=== PATIENT | female | born 1980 | race African-American/Black ===

== ENCOUNTER 2016-06-24 18:13 | Emergency (ER) | payer OTHER, MEDICAID ==
[2016-06-24 18:35] VITALS: BP 144/93; BMI 26.4
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
[2016-06-24] MEDS ORDERED: TYLENOL #3 TAB (W/CODEINE) PO ONE ×2 (20:51→21:03)
--- NOTE | 2016-06-24 23:29 | RAD ---
HISTORY: Right hand 5th digit pain after fall Study: Three views right hand Comparison: None Findings: There is an oblique fracture through the head of the middle phalanx of the 5th digit with minimal de pression of the fracture fragment. The fracture line extends into the middle of the DIP joint. IMPRESSION: 1. Fractured head of the middle phalanx of the 5th digit Reported By:
== END 2016-06-24 21:14 | disposition home or self-care (01) ==
LOC: ER 18:52
DX: S62.602A Fracture of unspecified phalanx of right middle finger, initial encounter for closed fracture (principal); W19.XXXA Unspecified fall, initial encounter
CPT/HCPCS: 29130; 73130; 99282; 99283

== ENCOUNTER → 2016-07-05 | Outpatient (CLI) | payer OTHER, MEDICAID ==
[2016-06-24 18:35] VITALS: BP 144/93
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
--- NOTE | 2016-07-05 14:33 | RAD ---
HISTORY: Preop hand surgery Study: Chest two views Comparison: None Findings: The trachea is midline. The cardiac silhouette is unremarkable. The lungs are clear without focal infiltrate or effusion. The bony thorax is unremarkable. There is a port present on the left. IMPRESSION: 1. No acute cardiopulmonary disease. Reported By:
== END ==
LOC: RAD 09:46
PROVIDERS: ATTEND Specialist
DX: Z01.810 Encounter for preprocedural cardiovascular examination (principal); Z01.811 Encounter for preprocedural respiratory examination; S62.626 Displaced fracture of middle phalanx of right little finger; X58.XXXS Exposure to other specified factors, sequela
CPT/HCPCS: 71020; 73130; 93005; 93010

== ENCOUNTER 2016-07-08 07:22 | Day surgery (SDC) | payer OTHER, MEDICAID ==
[2016-07-05 14:13] LABS: BASOPHILS # (AUTO) 0.1 X10^3/uL (0.0-0.1); BASOPHILS % (AUTO) 0.8 % (0.2-1.0); EOSINOPHILS # (AUTO) 0.2 x10^3/uL (0.0-0.2); EOSINOPHILS % (AUTO) 2.6 % (0.9-2.9); HEMATOCRIT 40.4 % (36.0-47.0); LYMPHOCYTES # (AUTO) 2.1 X10^3/uL (1.3-2.9); LYMPHOCYTES % (AUTO) 27.6 % (21.0-51.0); MEAN CORPUSCULAR HGB CONC 32.2 g/dL (33.0-35.0); MEAN CORPUSCULAR VOLUME 77.5 fL (80.0-100.0); MEAN PLATELET VOLUME 7.8 fL (7.4-11.0); MONOCYTES # (AUTO) 0.4 x10^3/uL (0.3-0.8); MONOCYTES % (AUTO) 5.2 % (0.0-13.0); NEUTROPHILS # (AUTO) 4.8 x10^3/uL (2.2-4.8); NEUTROPHILS % (AUTO) 63.8 % (42.0-75.0); PLATELET COUNT 193 X10^3/uL (150.0-450.0); RED BLOOD COUNT 5.21 X10^6/uL (3.5-5.4); RED CELL DISTRIBUTION WIDTH 15.4 % (11.6-16.5); WHITE BLOOD COUNT 7.5 X10^3/uL (3.6-10.0)
[2016-07-05 14:23] LABS: HYPOCHROMASIA SLIGHT; PLATELET MORPHOLOGY COMMENT NORMAL (NORMAL)
[2016-07-05 14:25] LABS: ALANINE AMINOTRANSFERASE 21 Units/L (12-78); ALBUMIN 3.6 g/dL (3.4-5.0); ALKALINE PHOSPHATASE 91 Units/L (46-116); ASPARTATE AMINO TRANSFERASE 7 Units/L (15-37); BLOOD UREA NITROGEN 15 mg/dL (7-18); CALCIUM 8.6 mg/dL (8.5-10.1); CARBON DIOXIDE 25.6 mmol/L (21-32); CHLORIDE 107 mmol/L (98-107); GLUCOSE 97 mg/dL (65-99); SODIUM 142 mmol/L (136-145); TOTAL PROTEIN 7.2 g/dL (6.4-8.2); eGFR BLACK RACES > 60 (>60); eGFR NON BLACK RACES 59 (>60)
[2016-07-05 14:26] LABS: BILIRUBIN,URINE NEGATIVE (NEGATIVE); BLOOD/HEMOGLOBIN,URINE 2+ (NEGATIVE); GLUCOSE, URINE NEGATIVE (NEGATIVE); KETONES,URINE NEGATIVE (NEGATIVE); LEUKOCYTE ESTERASE ,URINE 1+ (NEGATIVE); NITRITES,URINE NEGATIVE (NEGATIVE); PROTEIN,URINE NEGATIVE (NEGATIVE); UROBILINOGEN,URINE NORMAL (NORMAL)
[2016-07-05 14:34] LABS: APPEARANCE,URINE CLEAR (CLEAR); BACTERIA,URINE TRACE /HPF (NEGATIVE); COLOR,URINE YELLOW (YELLOW); SQUAMOUS EPITHELIAL CELL,UR RARE /HPF (NEGATIVE)
[2016-07-08] MEDS ORDERED: NS 50 ML IV + SPIKE MINIBAG* 50 ML IV ONE (07:36)
[2016-07-08] MEDS ORDERED: ANCEF VIAL 1 GM ONE (07:36)
[2016-07-08] MEDS ORDERED: D5 LR 1000 ML 1,000 ML IV ONE (07:36)
[2016-07-08] MEDS ORDERED: NAROPIN 0.75% ONE (07:58)
[2016-07-08] MEDS ORDERED: FENTANYL INJ 100 mcg ONE (07:58)
[2016-07-08] MEDS ORDERED: NS IRRIGATION 1000 ML 1,000 ML IR ONE (08:41)
[2016-07-08] MEDS ORDERED: PHENERGAN INJ 25 MG IVP PRN (09:24)
[2016-07-08] MEDS ORDERED: BENADRYL INJ 50 MG VIAL IVP PRN (09:24)
[2016-07-08] MEDS ORDERED: REGLAN INJ 10 MG VIAL IVP PRN (09:24)
[2016-07-08] MEDS ORDERED: ZOFRAN INJ 4 MG VIAL IVP PRN (09:24)
[2016-07-08] MEDS: DILAUDID INJ IVP PRN ×2 (09:26→09:39)
[2016-07-08] MEDS ORDERED: DYLOJECT INJ ONE (09:54)
[2016-07-08] MEDS ORDERED: REGLAN INJ 10 MG VIAL ONE (09:54)
[2016-07-08] MEDS ORDERED: DIPRIVAN VIAL ONE (09:54)
[2016-07-08] MEDS ORDERED: VERSED ONE (09:54)
[2016-07-08] MEDS ORDERED: ZOFRAN INJ 4 MG VIAL ONE ×2 (09:54→10:16)
[2016-07-08] MEDS ORDERED: NORCO 5/325 MG TAB ONE (10:04)
[2016-07-08 11:16] VITALS: BP 128/79
[2016-07-08] MEDS ORDERED: SUPRANE IN ONE (14:46)
== END 2016-07-08 11:00 | disposition home or self-care (01) ==
LOC: SURG1 07:22
PROVIDERS: ATTEND Specialist
PROC: 0PST34Z Reposition Right Finger Phalanx with Internal Fixation Device, Percutaneous Approach (ICD-10-PCS; principal; 2016-07-08 08:30)
DX: S62.626A Displaced fracture of middle phalanx of right little finger, initial encounter for closed fracture (principal); X58.XXXA Exposure to other specified factors, initial encounter
CPT/HCPCS: 36415; 76000; 80053; 81001; 85025; 87641; A4222; J0690; J1170; J2250; J2405; J2765; J3010; J3490; J7120

== ENCOUNTER → 2016-08-02 | Outpatient (CLI) | payer OTHER, MEDICAID ==
[2016-07-08 11:16] VITALS: BP 128/79
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
== END ==
LOC: RAD 08:42
PROVIDERS: ATTEND Specialist
DX: S62.626 Displaced fracture of middle phalanx of right little finger (principal); X58.XXXS Exposure to other specified factors, sequela
CPT/HCPCS: 73130

== ENCOUNTER 2016-08-22 23:27 | Emergency (ER) | payer OTHER, MEDICAID ==
[2016-08-22 23:40] VITALS: BMI 25.7
--- NOTE | 2016-08-23 01:31 | DR.GENAD ---
HPI - PCP Primary Care Physician: Gene ALTAMIRANO - HPI Comment HPI Comment: RIGHT KNEE PAIN TIMES ONE DAY. RECENT RIGHT ARTHROSCOPY. NO TRAUMA. - Complaint/Symptoms Chief Complaint Doctors Comments: RIGHT KNEE PAIN AND SWELLINING TIMES ONE DAY. RECENT SURGERY. Chief Complaint:: PATIENT HAD SURGERY ON RIGHT KNEE ON July. YESTERDAY THE RIGHT KNEE STARTED TO SWELL AGAIN AND HURTS REALLY BAD Self Treatment fo Chief Complaint: ICE PACKS AND MELOXICAM DAILY - Nurses notes reviewed Nurses Notes Review: Yes - Source History Provided: Patient - Mode of Arrival Mode of Arrival: Ambulatory - Timing Onset of Chief Complaint: 08/21/16 Came on: Gradually - Duration Duration: Constant Duration: Days - Severity Severity: Moderate PMH - PMH Past Medical History: Yes Past Medical History: Anemia, Anxiety, Depression Past Surgical History: Yes Surgical History: Ortho Surgery Past Surgical History Comment: LASER SURGERY ON UTERUS - Family History History of Family Medical Conditions: Yes Family Medical History: Diabetes Mellitus, Cancer, Hypertension - Social History Does patient currently use any type of tobacco product: Yes Have you used tobacco products in the last 12 months: Yes Type of Tobacco Use: Cigarettes How many years tobacco product used: 1 Does any household member use tobacco: Yes Alcohol Use: None Do you use any recreational Drugs:: No Lives With: Spouse Lives Where: Home - infectious screening In the last 2 months have you had wt loss of >10#?: NO Have you had fever, night sweats or hemotysis?: No Have you traveled outside the country in the last 6 months?: No Isolation: Standard ROS - Review of Systems Constitutional: No Symptoms Reported Eyes: No Symptoms Reported ENTM: No Symptoms Reported Respiratoy: No Symptoms Reported Cardiovascular: No Symptoms Reported Gastrointestinal/Abdominal: No Symptoms Reported Genitourinary: No Symptoms Reported Neurological: No Symptoms Reported Musculoskeletal: Right, Knee Integumentary: No Symptoms Reported Hematologic/Lymphatic: No Symptoms Reported All Other Systems: Reviewed and Negative PE - Vital Signs Vitals: Temperature 98.6 F Pulse Rate [Left Radial] 74 Pulse Rate 78 Respiratory Rate 15 Blood Pressure [Right Radial 132/78 Artery] Blood Pressure 121/85 O2 Sat by Pulse Oximetry 99 - General Limitations: No Limitations General Appearance: Alert - Head Head Exam: Normal Inspection - Eyes Eye exam: Normal Appearance - ENT ENT Exam: Normal External Ear Exam External Ear Exam: Normal External Inspection TM/Canal Exam: Bilateral Normal Nose Exam: Normal Nose Exam Mouth Exam: Normal Inspection Throat Exam: Normal Inspection - Neck Neck Exam: Trachea Midline - Chest Chest Inspection: Symmetric Chest Wall Rise - Respiratory Respiratory Exam: Normal Lung Sounds Bilat Respiratory Exam: Bilateral Clear to Auscultation - Cardiovascular Cardiovascular Exam: Regular Rate, Normal Rhythm, Normal Heart Sounds - Abdominal Exam Abdominal Exam: Normal Bowel Sounds, Soft, Tenderness - Extremities Extremities Exam: Full ROM, Tenderness (RT KNEE), Joint Swelling (RT KNEE) - Back Back Exam: Normal Inspection - Neurologic Neurological Exam: Alert, Oriented X3 - Psychiatric Psychiatric Exam: Normal Affect, Normal Mood - Skin Skin Exam: Normal Color MDM - Additional Information Additional Information Obtained From: Family - Differential Diagnosis Differential Diagnosis: RT KNEE FRACTURE, CONTUSION, SPRAIN, STRAIN Course - Treatment Treatment: SEE ORDERS - Education/Counseling Education/Counseling: Patient, Family, Education Educated On: Treatment, Diagnosis, Needs for Follow Up ROR - XRAY XRAY Interpreted by: Radiologist XRAY Findings: REPORT DISCUSS WITH PATIENT - Diagnosis Discharge Problem: Right knee sprain Qualifiers: Encounter type: initial encounter Involved ligament of knee: unspecified ligament Qualified Code(s): S83.91XA - Sprain of unspecified site of right knee , initial encounter Knee pain, acute Qualifiers: Laterality: right Qualified Code(s): M25.561 - Pain in right knee - Discharge Plan Disposition: 01 HOME, SELF-CARE Condition: Stable - Follow ups/Referrals Follow ups/Referrals: MITA ALTAMIRANO [Primary Care Provider] - 3 days - Instructions Instructions: Knee Pain Additional Instructions: RETURN TO ED IF WORSE. CONTINUE WITH MEDS YOU HAVE AT HOME.
[2016-08-23] MEDS ORDERED: TORADOL 60 MG VIAL IM ONE (01:33)
[2016-08-23] MEDS ORDERED: TORADOL 60 MG VIAL ONE (01:47)
--- NOTE | 2016-08-23 02:24 | RAD ---
EXAM: Right knee x-ray INDICATION: Pain COMPARISION: Prior exam from July 17, 2015 TECHNIQUE: AP, lateral, and oblique, three views FINDINGS: No acute fracture or dislocation. There is no evidence of an intraosseous lesion. The joint spaces a re preserved. No joint effusion is identified. The surrounding soft tissues appear unremarkable. The re is no evidence of a radiopaque foreign body. IMPRESSION: Normal right knee x-ray exam Reported By:
[2016-08-23 02:57] VITALS: BP 132/78
== END 2016-08-23 03:00 | disposition home or self-care (01) ==
LOC: ER 23:27
DX: S83.91XA Sprain of unspecified site of right knee, initial encounter (principal); M25.561 Pain in right knee; Y92.9 Unspecified place or not applicable
CPT/HCPCS: 73560; 96372; 99282; 99283; J1885

== ENCOUNTER 2016-10-06 02:06 | Emergency (ER) | payer OTHER, MEDICAID ==
[2016-10-06 02:16] VITALS: BP 153/78; BMI 25.4
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
== END 2016-10-06 04:13 | disposition home or self-care (01) ==
LOC: ER 02:06
DX: S63.616A Unspecified sprain of right little finger, initial encounter (principal); Y04.0XXA Assault by unarmed brawl or fight, initial encounter; Y92.69 Other specified industrial and construction area as the place of occurrence of the external cause
CPT/HCPCS: 29130; 73130; 99282

== ENCOUNTER → 2017-01-08 | Outpatient (CLI) | payer OTHER, MEDICAID | LOC: LAB 12:12 | PROVIDERS: ATTEND Family Medicine | DX: R52 Pain, unspecified (principal) | CPT/HCPCS: 80307; 80346; 80361; 80368; 80369; G0434 ==